=== PATIENT | female | born 1995 | race Caucasian/White ===

== ENCOUNTER 2021-10-13 06:41 | Emergency (ER) | payer MEDICAID, SELFPAY ==
[2021-10-13 07:01] VITALS: BP 119/56; PULSE 81; RESP 16; TEMP 36.7; O2SAT 100; BMI 42.0
[2021-10-13 07:07] VITALS: BP 142/67; PULSE 79; RESP 16; TEMP 36.6; O2SAT 100
--- NOTE | 2021-10-13 07:18 | ED.DENTAL ---
HPI - Dental/Oral General Chief complaint: Dental/Oral Stated complaint: Facial swelling/?Dental Time Seen by Provider: 10/13/21 07:11 Source: patient Mode of arrival: ambulatory Limitations: no limitations History of Present Illness MD Complaint: tooth pain Teeth map: . 09/03 Onset (ago): day(s) (2) Duration: constant Severity: moderate Relieving factors: nothing Exacerbating factors: chewing, cold and heat Context: history of dental caries and poor dental care Associated symptoms: gum swelling and pain with swallowing Treatment prior to arrival: none Related Data Previous Rx's Medication Instructions Recorded amoxicillin 875 mg-potassium 1 tab PO BID #14 tab 10/13/21 clavulanate 125 mg tablet Allergies Allergy/AdvReac Type Severity Reaction Status Date / Time No Known Allergies Allergy Unverified 03/19/20 16:46 Review of Systems Review of Systems: Constitutional : No Fever, No Chills ENT/Mouth : No swallowing difficulty, no change in voice, positive dental pain, positive jaw pain, positive facial swelling Eyes: No Eye Pain, No Swelling Cardiovascular : No Chest Pain, No SOB Respiratory : No Cough, No Sputum Gastrointestinal : No Nausea, No Vomiting, No Diarrhea Genitourinary : No Dysuria Musculoskeletal : No Myalgias Skin : No rash Neuro : No Weakness, No Numbness, No Headache PMFSH Past Medical History Attestation statement: The following information was validated with the patient. Medical History (Updated 10/13/21 @ 07:21 by Yanna Irving DO) No pertinent past medical history Social History Social History (Updated 10/13/21 @ 07:21 by Yanna Irving DO) Patient Tobacco Use Status: Never used Tobacco Advance Directives: No Patient : No Physical Exam Vital Signs: Vital Signs: Last Vital Signs Temp 97.8 F 10/13/21 07:07 Pulse 79 10/13/21 07:07 Resp 16 10/13/21 07:07 BP 142/67 H 10/13/21 07:07 Pulse Ox 100 10/13/21 07:07 BMI result Body Mass Index 42.0 Appearance: Alert. Oriented X3. No acute distress. Eyes: Pupils equal, round and reactive to light. ENT: Pharynx normal. no trismus cracked R upper molar mild swelling R cheek no sublingual or submandibular swelling no facial cellulitis Neck: Normal inspection. Neck supple. CVS: Normal heart rate and rhythm. Pulses normal. Respiratory: No respiratory distress. Abdomen: Soft and non-tender. Skin: Skin warm and dry. Normal skin color. Extremities: No lower extremity edema. Neuro: Oriented X 3. No motor deficit. No sensory deficit. MDM - Dental/Oral MDM Narrative Medical decision making narrative: 26 yo female healthy here with R upper cracked molar now with mild R sided cheek swelling no obvious drainable abscess no fevers, no trismus, no submandibular or sublingual swelling - start on oral augmentin and follow up with dentist Discharge Plan Discharge Clinical Impression: Toothache, Dental caries, Dental abscess Patient Disposition: Home, Self-Care Instructions: Dental Abscess (ED), Toothache (ED) Additional Instructions: return to ED for any worsening symptoms or concerns if face becomes more swollen please seek care see dentist as soon as possible Prescriptions: New amoxicillin-pot clavulanate 875-125 mg tablet 1 tab PO BID Qty: 14 0RF
[2021-10-13] MEDS: Amoxicillin/Potassium Clav 875 MG TABLET PO (07:30)
--- NOTE | 2021-10-13 07:33 | PC.NURSE ---
PT AWAKE, ALERT AND ORIENTED X 3. SKIN WARM AND DRY. RESP UNLABORED. AIRWAY PATENT. SPEAKING IN FULL SENTENCES SWELLING NOTED TO RIGHT CHEEK. PT REPORTS BROKEN TOOTH TO RIGHT LOWER EVALUATED BY PROVIDER. PLAN IS FOR ABX AND DC HOME. PT AGREEABLE TO PLAN
== END 2021-10-13 07:35 | disposition home or self-care (01) ==
PROVIDERS: Emergency Provider Emergency Medicine
DX: K02.9 Dental caries, unspecified (principal); K04.7 Periapical abscess without sinus
CPT/HCPCS: 99283